=== PATIENT | male | born 1950 | race African-American/Black ===

== ENCOUNTER 2022-12-20 01:22 | Emergency (ER) | payer MEDICARE ==
[2022-12-20] MEDS ORDERED: Oxymetazoline HCl 0.05% (30 ML BOT) ONE (01:50)
[2022-12-20] MEDS ORDERED: Labetalol HCl 100 MG/20 ML VIAL ONE (03:15)
[2022-12-20 03:28] LABS: INR-International Normal Ratio 0.8; Prothrombin Time 11.9 sec (12.0-14.7)
[2022-12-20 03:29] LABS: PTT 30.9 sec (22.9-36.1)
[2022-12-20 03:30] LABS: #Basophils 0.1 thou/uL (0.0-0.2); #Eosinphils 0.3 thou/uL (0.0-0.7); #Lymphocytes 3.1 thou/uL (1.20-3.40); %Basophils 0.7 % (0.0-1.0); %Eosinophils 2.4 % (0.0-10.0); %Lymphocytes 29.9 % (21.0-51.0); %Monocytes 9.3 % (0.0-10.0); %Neutrophils 57.7 % (42.0-75.0); Hemoglobin 12.1 g/dL (14.0-18.0); Mean Corpuscular HGB CONC 33.7 g/dL (32.0-36.0); Mean Corpuscular Volume 83.3 fl (78.0-98.0); Mean Platelet Volume 8.8 fL (7.4-10.4); Platelet Count 245 10x3/uL (130-400); RBC Distribution Width 14.7 % (11.5-14.5); Red Blood Cell (RBC) Count 4.33 mill/uL (4.70-6.10); White Blood Cell (WBC) Count 10.4 10x3/uL (4.8-10.8)
[2022-12-20 03:31] LABS: RBC Morphology Normal
[2022-12-20 04:01] LABS: ALT (SGPT) 13 U/L (8-55); AST (SGOT) 20 U/L (5-34); Albumin 3.5 g/dL (3.4-4.8); Alkaline Phosphatase 150 U/L (40-110); Anion Gap 20 mmol/L (10-20); Bilirubin, Total 0.5 mg/dL (0.2-1.2); Calc. Creatinine Clearance 0 mL/min (70-130); Calcium 9.9 mg/dL (7.8-10.44); Carbon Dioxide 29 mmol/L (23-31); Chloride 92 mmol/L (98-107); Estimated GFR 5; Globulin 3.7 g/dL (2.4-3.5); Glucose 104 mg/dL (83-110); Potassium 5.9 mmol/L (3.5-5.1); Protein, Total 7.2 g/dL (5.8-8.1); Sodium 135 mmol/L (136-145)
[2022-12-20 04:20] LABS: BUN (Urea Nitrogen) 149 mg/dL (8.4-25.7)
[2022-12-20] MEDS ORDERED: Insulin Regular 300 UNITS/3 ML VIAL ONE (07:15)
[2022-12-20] MEDS ORDERED: Calcium Gluc 4.6 MEQ/10 ML (100 MG/ML) ONE (07:15)
[2022-12-20] MEDS ORDERED: Dextrose 50% Abboject 50 ML SYRINGE ONE (07:15)
== END 2022-12-20 08:30 | disposition short-term general hospital (02) ==
LOC: MADERS 01:22
DX: R04.0 Epistaxis (principal); I13.0 Hypertensive heart and chronic kidney disease with heart failure and stage 1 through stage 4 chronic kidney disease, or unspecified chronic kidney disease; E11.22 Type 2 diabetes mellitus with diabetic chronic kidney disease; N18.9 Chronic kidney disease, unspecified; I50.9 Heart failure, unspecified; E87.5 Hyperkalemia; Z99.2 Dependence on renal dialysis; Z86.73 Personal history of transient ischemic attack (TIA), and cerebral infarction without residual deficits; Z79.82 Long term (current) use of aspirin; Z79.899 Other long term (current) drug therapy
CPT/HCPCS: 80053; 85025; 85610; 85730; 93005; J0610; 30901; 96374; 96375; 96376; J1815; J2597; J7999

== ENCOUNTER 2023-03-28 22:46 | Emergency (ER) | payer MEDICARE ==
[2023-03-28 23:24] LABS: #Basophils 0.1 thou/uL (0.0-0.2); #Eosinphils 0.1 thou/uL (0.0-0.7); #Lymphocytes 1.1 thou/uL (1.20-3.40); #Monocytes 0.5 thou/uL (0.11-0.59); #Neutrophils 1.9 thou/uL (1.40-6.50); %Basophils 1.9 % (0.0-1.0); %Eosinophils 2.3 % (0.0-10.0); %Lymphocytes 28.9 % (21.0-51.0); %Monocytes 14.9 % (0.0-10.0); Hemoglobin 13.3 g/dL (14.0-18.0); Mean Corpuscular HGB CONC 32.4 g/dL (32.0-36.0); Mean Corpuscular Hemoglobin 30.8 pg (27.0-31.0); Mean Corpuscular Volume 94.9 fl (78.0-98.0); Platelet Count 181 10x3/uL (130-400); RBC Distribution Width 18.1 % (11.5-14.5); Red Blood Cell (RBC) Count 4.33 mill/uL (4.70-6.10); White Blood Cell (WBC) Count 3.6 10x3/uL (4.8-10.8)
[2023-03-28] MEDS ORDERED: Ondansetron PF 4 MG/2 ML Vial ONE (23:36)
[2023-03-28 23:42] LABS: ALT (SGPT) 16 U/L (8-55); AST (SGOT) 22 U/L (5-34); Albumin 3.5 g/dL (3.4-4.8); Alkaline Phosphatase 143 U/L (40-110); Anion Gap 15 mmol/L (10-20); BUN (Urea Nitrogen) 40 mg/dL (8.4-25.7); Bilirubin, Total 0.5 mg/dL (0.2-1.2); Calc. Creatinine Clearance 0 mL/min (70-130); Calcium 9.5 mg/dL (7.8-10.44); Carbon Dioxide 32 mmol/L (23-31); Chloride 92 mmol/L (98-107); Estimated GFR 15; Globulin 3.7 g/dL (2.4-3.5); Glucose 97 mg/dL (83-110); Lipase 63 U/L (8-78); Potassium 3.8 mmol/L (3.5-5.1); Protein, Total 7.2 g/dL (5.8-8.1); Sodium 135 mmol/L (136-145)
[2023-03-29 00:13] LABS: Bilirubin Negative (Negative); Blood, Urine Moderate (Negative); Clarity Cloudy (Clear); Glucose, Urine (Dipstick) Negative (Negative); Ketone, Urine Negative (Negative); Leukocyte Large (Negative); Nitrite Negative (Negative); Protein, Urine (Dipstick) > or equal to 300 mg/dL (Neg-Trace); Urobilinogen 0.2 mg/dL (Less than 2); pH, Urine 7.5 (5.0-9.0)
[2023-03-29 00:20] LABS: Bacteria/HPF 2+ HPF (None Seen); WBC/HPF Greater than 50 HPF (0-3)
[2023-03-29] MEDS ORDERED: Sodium Chloride 0.9% 100 ML ONE (01:11)
[2023-03-29] MEDS ORDERED: cefTRIAXone (ROCEPHIN) 1 GM VIAL ONE (01:11)
[2023-03-29] MEDS ORDERED: Sodium Chloride 0.9% 250 ML 250 ML ONE (01:12)
[2023-03-29] MEDS ORDERED: Vancomycin 1 GM VIAL ONE (01:12)
== END 2023-03-29 08:35 | disposition short-term general hospital (02) ==
LOC: MADERS 22:46
DX: J18.9 Pneumonia, unspecified organism (principal); E11.22 Type 2 diabetes mellitus with diabetic chronic kidney disease; I13.2 Hypertensive heart and chronic kidney disease with heart failure and with stage 5 chronic kidney disease, or end stage renal disease; N18.6 End stage renal disease; Z99.2 Dependence on renal dialysis; Z79.899 Other long term (current) drug therapy; Z79.82 Long term (current) use of aspirin
CPT/HCPCS: 51701; 71045; 74176; 80053; 81003; 81015; 82271; 83605; 83690; 85025; 87040; 87086; 93005; 96365; 96367; 96375; J0696; J2405; J3370; J3490; J7050

== ENCOUNTER 2023-06-29 08:59 | Emergency (ER) | payer MEDICARE ==
[2023-06-29 09:58] LABS: ALT (SGPT) 11 U/L (8-55); AST (SGOT) 24 U/L (5-34); Alkaline Phosphatase 152 U/L (40-110); Anion Gap 19 mmol/L (10-20); BUN (Urea Nitrogen) 102 mg/dL (8.4-25.7); Bilirubin, Total 0.4 mg/dL (0.2-1.2); Calc. Creatinine Clearance 0 mL/min (70-130); Calcium 9.8 mg/dL (7.8-10.44); Carbon Dioxide 30 mmol/L (23-31); Chloride 90 mmol/L (98-107); Estimated GFR 7; Globulin 4.2 g/dL (2.4-3.5); Glucose 142 mg/dL (83-110); Potassium 3.7 mmol/L (3.5-5.1); Protein, Total 7.2 g/dL (5.8-8.1); Sodium 135 mmol/L (136-145)
[2023-06-29 10:05] LABS: #Basophils 0.1 thou/uL (0.0-0.2); #Eosinphils 0.4 thou/uL (0.0-0.7); #Lymphocytes 1.8 thou/uL (1.20-3.40); #Monocytes 0.9 thou/uL (0.11-0.59); %Basophils 1.4 % (0.0-1.0); %Lymphocytes 29.5 % (21.0-51.0); %Monocytes 14.2 % (0.0-10.0); %Neutrophils 47.8 % (42.0-75.0); Anisocytosis SLIGHT = 6-15 cells (100X) (0-5/hpf); Band 1 % (5-11); Eosinophils 5 % (0-10); Hematocrit 33.2 % (42.0-52.0); Hemoglobin 11.3 g/dL (14.0-18.0); Lymphocytes 8 % (21-51); MDiff Complete? YES; Mean Corpuscular HGB CONC 34.1 g/dL (32.0-36.0); Mean Corpuscular Hemoglobin 30.2 pg (27.0-31.0); Mean Corpuscular Volume 88.7 fl (78.0-98.0); Mean Platelet Volume 9.4 fL (7.4-10.4); Metamyelocyte 1 % (0-0); Monocytes 10 % (0-10); Neutrophil 55 % (42-75); Nucleated RBC (Manual Ct) 1 % (0); Platelet Adequacy Comment Appears Adequate; Platelet Count 217 10x3/uL (130-400); RBC Distribution Width 18.8 % (11.5-14.5); Reactive Lymphocytes 19 % (0-10); Red Blood Cell (RBC) Count 3.75 mill/uL (4.70-6.10); Target Cells MODERATE= 6-15 cells (100X) (0-1/hpf); White Blood Cell (WBC) Count 6.2 10x3/uL (4.8-10.8)
== END 2023-06-29 11:30 | disposition home or self-care (01) ==
LOC: MADERS 08:59
DX: E11.22 Type 2 diabetes mellitus with diabetic chronic kidney disease (principal); I13.2 Hypertensive heart and chronic kidney disease with heart failure and with stage 5 chronic kidney disease, or end stage renal disease; N18.6 End stage renal disease; Z99.2 Dependence on renal dialysis
CPT/HCPCS: 36415; 71045; 80053; 85025; 93005

== ENCOUNTER 2023-07-23 08:42 | Emergency (ER) | payer MEDICARE | END 2023-07-23 12:20 | disposition home or self-care (01) | LOC: MADERS 08:42 | DX: Z43.1 Encounter for attention to gastrostomy (principal); I11.0 Hypertensive heart disease with heart failure; I50.9 Heart failure, unspecified; E11.9 Type 2 diabetes mellitus without complications | CPT/HCPCS: 74018 ==

== ENCOUNTER 2023-08-22 21:47 | Emergency (ER) | payer MEDICARE | END 2023-08-23 01:22 | disposition home or self-care (01) | LOC: MADERS 21:47 | DX: R05.9 Cough, unspecified (principal); R11.10 Vomiting, unspecified; I13.2 Hypertensive heart and chronic kidney disease with heart failure and with stage 5 chronic kidney disease, or end stage renal disease; E11.22 Type 2 diabetes mellitus with diabetic chronic kidney disease; N18.6 End stage renal disease; I50.9 Heart failure, unspecified; Z99.2 Dependence on renal dialysis; Z79.82 Long term (current) use of aspirin | CPT/HCPCS: 71045 ==

== ENCOUNTER 2023-08-27 23:13 | Emergency (ER) | payer MEDICARE ==
[2023-08-28] MEDS ORDERED: metroNIDAZOLE 500 MG/100 ML BAG ONE (00:12)
[2023-08-28] MEDS ORDERED: Sodium Chloride 0.9% 100 ML ONE (00:12)
[2023-08-28] MEDS ORDERED: cefTRIAXone (ROCEPHIN) 1 GM VIAL ONE (00:12)
[2023-08-28 00:14] LABS: #Basophils 0.1 thou/uL (0.0-0.2); #Eosinphils 0.1 thou/uL (0.0-0.7); #Monocytes 0.4 thou/uL (0.11-0.59); #Neutrophils 4.2 thou/uL (1.40-6.50); %Basophils 1.5 % (0.0-1.0); %Eosinophils 1.5 % (0.0-10.0); %Lymphocytes 17.1 % (21.0-51.0); %Monocytes 7.4 % (0.0-10.0); %Neutrophils 72.5 % (42.0-75.0); ALT (SGPT) 9 U/L (8-55); AST (SGOT) 22 U/L (5-34); Albumin 3.5 g/dL (3.4-4.8); Alkaline Phosphatase 146 U/L (40-110); Anion Gap 19 mmol/L (10-20); Anisocytosis SLIGHT = 6-15 cells (100X) (0-5/hpf); BUN (Urea Nitrogen) 33 mg/dL (8.4-25.7); Bilirubin, Total 0.3 mg/dL (0.2-1.2); Calc. Creatinine Clearance 0 mL/min (70-130); Calcium 9.6 mg/dL (7.8-10.44); Carbon Dioxide 30 mmol/L (23-31); Chloride 93 mmol/L (98-107); Estimated GFR 17; Globulin 4.1 g/dL (2.4-3.5); Glucose 234 mg/dL (83-110); Hematocrit 34.1 % (42.0-52.0); Hemoglobin 10.9 g/dL (14.0-18.0); MDiff Complete? YES; Magnesium 2.3 mg/dL (1.6-2.6); Mean Corpuscular Hemoglobin 29.5 pg (27.0-31.0); Mean Platelet Volume 8.4 fL (7.4-10.4); Platelet Adequacy Comment Appears Adequate; Platelet Count 308 10x3/uL (130-400); Polychromasia SLIGHT = 2-3 cells (100X) (0-2/hpf); Potassium 3.2 mmol/L (3.5-5.1); Protein, Total 7.6 g/dL (5.8-8.1); RBC Distribution Width 20.1 % (11.5-14.5); Sodium 139 mmol/L (136-145); Target Cells SLIGHT = 2-5 cells (100X) (0-1/hpf); Tear Drops SLIGHT = 2-5 cells (100X) (0-1/hpf); White Blood Cell (WBC) Count 5.7 10x3/uL (4.8-10.8)
[2023-08-28 00:15] LABS: Troponin I 0.033 ng/mL (< 0.028)
[2023-08-28 00:15] LABS: SARS-CoV-2 NAA Rapid Test Not Detected (NotDetected)
[2023-08-28 00:25] LABS: Base Excess-Venous 5.7 mmol/L (-2.0 to 3.0); Bicarbonate (HCO3v) 32.8 mmol/L (22.0-28.0); CO2 Tension (PvCO2) 58.7 mmHg (42.0-51.0); Calcium, Ionized 1.26 mmol/L (1.15-1.33); Chloride 94 mmol/L (98-107); Hemoglobin - Calc 12.4 g/dL (14.0-18.0); Potassium 3.1 mmol/L (3.5-5.1); Sodium 140 mmol/L (138-145); T. Carbon Dioxide 34.6 mmol/L (22.0-28.0); vO2 Saturation-calc 90.1 % (60.0-85.0)
[2023-08-28] MEDS ORDERED: Sodium Chloride 0.9% 250 ML 250 ML ONE (00:30)
== END 2023-08-28 01:11 | disposition short-term general hospital (02) ==
LOC: MADERS 23:13
DX: J69.0 Pneumonitis due to inhalation of food and vomit (principal); R09.02 Hypoxemia; I13.2 Hypertensive heart and chronic kidney disease with heart failure and with stage 5 chronic kidney disease, or end stage renal disease; E11.22 Type 2 diabetes mellitus with diabetic chronic kidney disease; N18.6 End stage renal disease; I50.9 Heart failure, unspecified; K21.9 Gastro-esophageal reflux disease without esophagitis; F03.90 Unspecified dementia, unspecified severity, without behavioral disturbance, psychotic disturbance, mood disturbance, and anxiety; Z20.822 Contact with and (suspected) exposure to COVID-19; Z86.73 Personal history of transient ischemic attack (TIA), and cerebral infarction without residual deficits; Z99.2 Dependence on renal dialysis; Z79.82 Long term (current) use of aspirin; Z79.899 Other long term (current) drug therapy
CPT/HCPCS: 71045; 80053; 82330; 82803; 83605; 83735; 83880; 84484; 85025; 87040; 87149; 87804; 93005; 96365; 96375; J0696; J3490; J7050; U0002

== ENCOUNTER 2023-10-18 21:28 | Emergency (ER) | payer MEDICARE ==
[2023-10-18 22:09] LABS: Prothrombin Time 13.1 sec (12.0-14.7)
[2023-10-18 22:11] LABS: PTT 31.5 sec (22.9-36.1)
[2023-10-18] MEDS ORDERED: Ondansetron PF 4 MG/2 ML Vial ONE (22:18)
[2023-10-18] MEDS ORDERED: Sodium Chloride 0.9% 1,000 ML ONE (22:18)
[2023-10-18 22:24] LABS: ALT (SGPT) 20 U/L (8-55); AST (SGOT) 39 U/L (5-34); Albumin 3.4 g/dL (3.4-4.8); Alkaline Phosphatase 135 U/L (40-110); Anion Gap 20 mmol/L (10-20); BUN (Urea Nitrogen) 59 mg/dL (8.4-25.7); Bilirubin, Total 0.3 mg/dL (0.2-1.2); Calc. Creatinine Clearance 0 mL/min (70-130); Calcium 10.5 mg/dL (7.8-10.44); Carbon Dioxide 31 mmol/L (23-31); Chloride 92 mmol/L (98-107); Estimated GFR 11; Globulin 4.3 g/dL (2.4-3.5); Glucose 141 mg/dL (83-110); Lipase 34 U/L (8-78); Magnesium 2.7 mg/dL (1.6-2.6); Potassium 3.6 mmol/L (3.5-5.1); Protein, Total 7.7 g/dL (5.8-8.1); Sodium 139 mmol/L (136-145)
[2023-10-18 23:04] LABS: Eosinophils 4 % (0-10); Hematocrit 34.1 % (42.0-52.0); Hemoglobin 10.9 g/dL (14.0-18.0); Hypochromia SLIGHT = 6-15 cells (100X) (0-5/hpf); Lymphocytes 4 % (21-51); MDiff Complete? YES; Mean Corpuscular HGB CONC 32.1 g/dL (32.0-36.0); Mean Corpuscular Hemoglobin 29.3 pg (27.0-31.0); Mean Corpuscular Volume 91.4 fl (78.0-98.0); Mean Platelet Volume 9.6 fL (7.4-10.4); Monocytes 4 % (0-10); Neutrophil 88 % (42-75); Platelet Adequacy Comment Appears Adequate; Platelet Count 307 10x3/uL (130-400); RBC Distribution Width 19.5 % (11.5-14.5); Red Blood Cell (RBC) Count 3.73 mill/uL (4.70-6.10); White Blood Cell (WBC) Count 15.3 10x3/uL (4.8-10.8)
[2023-10-18 23:25] LABS: SARS-CoV-2 NAA Rapid Test Not Detected (NotDetected)
[2023-10-18] MEDS ORDERED: cefTRIAXone (ROCEPHIN) 2 GM VIAL ONE (23:43)
[2023-10-18] MEDS ORDERED: Sodium Chloride 0.9% 250 ML 250 ML ONE (23:43)
[2023-10-18] MEDS ORDERED: Sodium Chloride 0.9% 100 ML ONE (23:43)
[2023-10-18] MEDS ORDERED: Azithromycin 500 MG VIAL ONE (23:43)
== END 2023-10-19 10:10 ==
LOC: MADERS 21:28
DX: A41.9 Sepsis, unspecified organism (principal); J18.9 Pneumonia, unspecified organism; E11.22 Type 2 diabetes mellitus with diabetic chronic kidney disease; N18.9 Chronic kidney disease, unspecified; I13.0 Hypertensive heart and chronic kidney disease with heart failure and stage 1 through stage 4 chronic kidney disease, or unspecified chronic kidney disease; I50.9 Heart failure, unspecified; Z79.899 Other long term (current) drug therapy; Z79.82 Long term (current) use of aspirin
CPT/HCPCS: 0240U; 70450; 71045; 74176; 80053; 83605; 83690; 83735; 85025; 85610; 85730; 94760; J0456; 82274; 96361; 96365; 96367; 96375; J0696; J2405; J3490; J7050

== ENCOUNTER 2023-11-20 20:00 | Emergency (ER) | payer MEDICARE ==
[2023-11-20] MEDS ORDERED: Sodium Bicarbonate Tab 325 MG TAB PER TUBE PRN (20:45)
[2023-11-20] MEDS ORDERED: Pancrelipase DR 12,000 1 CAP FS PRN (20:45)
[2023-11-20 21:02] LABS: #Basophils 0.1 thou/uL (0.0-0.2); #Eosinphils 0.5 thou/uL (0.0-0.7); #Lymphocytes 1.9 thou/uL (1.20-3.40); #Monocytes 0.9 thou/uL (0.11-0.59); #Neutrophils 3.7 thou/uL (1.40-6.50); %Basophils 1.6 % (0.0-1.0); %Eosinophils 6.8 % (0.0-10.0); %Lymphocytes 26.1 % (21.0-51.0); %Monocytes 13.1 % (0.0-10.0); %Neutrophils 52.4 % (42.0-75.0); Hematocrit 35.2 % (42.0-52.0); Hemoglobin 11.4 g/dL (14.0-18.0); Mean Corpuscular HGB CONC 32.3 g/dL (32.0-36.0); Mean Corpuscular Hemoglobin 29.2 pg (27.0-31.0); Mean Corpuscular Volume 90.2 fl (78.0-98.0); Mean Platelet Volume 9.7 fL (7.4-10.4); Platelet Count 259 10x3/uL (130-400); RBC Distribution Width 17.3 % (11.5-14.5); Red Blood Cell (RBC) Count 3.91 mill/uL (4.70-6.10); White Blood Cell (WBC) Count 7.1 10x3/uL (4.8-10.8)
[2023-11-20] MEDS ORDERED: Lactated Ringer's 1,000 ML ONE (21:15)
[2023-11-20 21:22] LABS: ALT (SGPT) 7 U/L (8-55); AST (SGOT) 35 U/L (5-34); Albumin 3.3 g/dL (3.4-4.8); Alkaline Phosphatase 128 U/L (40-110); Anion Gap 12 mmol/L (10-20); BUN (Urea Nitrogen) 36 mg/dL (8.4-25.7); Bilirubin, Total 0.4 mg/dL (0.2-1.2); Calc. Creatinine Clearance 0 mL/min (70-130); Calcium 10.5 mg/dL (7.8-10.44); Carbon Dioxide 36 mmol/L (23-31); Chloride 89 mmol/L (98-107); Estimated GFR 13; Globulin 4.1 g/dL (2.4-3.5); Glucose 93 mg/dL (83-110); Lipase 56 U/L (8-78); Protein, Total 7.4 g/dL (5.8-8.1); Sodium 134 mmol/L (136-145)
[2023-11-20 22:13] LABS: SARS-CoV-2 NAA Rapid Test Not Detected (NotDetected)
== END 2023-11-21 02:04 | disposition short-term general hospital (02) ==
LOC: MADERS 20:00
DX: K94.23 Gastrostomy malfunction (principal); R11.10 Vomiting, unspecified; I13.0 Hypertensive heart and chronic kidney disease with heart failure and stage 1 through stage 4 chronic kidney disease, or unspecified chronic kidney disease; E11.22 Type 2 diabetes mellitus with diabetic chronic kidney disease; N18.9 Chronic kidney disease, unspecified; I50.9 Heart failure, unspecified; K21.9 Gastro-esophageal reflux disease without esophagitis; Z86.73 Personal history of transient ischemic attack (TIA), and cerebral infarction without residual deficits; Z99.2 Dependence on renal dialysis; Z79.82 Long term (current) use of aspirin; Z79.899 Other long term (current) drug therapy
CPT/HCPCS: 71045; 74176; 80053; 83690; 85025; 87081; 87430; 94760; U0002; 96360; 96361; J7120

== ENCOUNTER 2024-07-06 08:47 | Emergency (ER) | payer MEDICARE | END 2024-07-06 12:21 | disposition home or self-care (01) | LOC: MADERS 08:47 | DX: Z04.3 Encounter for examination and observation following other accident (principal) | CPT/HCPCS: 70450; 71045; 72125 ==